=== PATIENT | female | born 1935 | race Caucasian/White ===

== ENCOUNTER 2021-03-20 20:04 | Inpatient (IN) | payer OTHER ==
[~2021-03-20] VITALS: Ht 160 cm; Wt 97.5 kg
[2021-03-20 20:16] VITALS: BP 174/117
[2021-03-20] MEDS ORDERED: COZAAR 25 MG TA25 M1 PO (20:22)
[2021-03-20] MEDS ORDERED: LIPITOR10 MG PO (20:22)
[2021-03-20] MEDS ORDERED: FUROSEMIDE 20 M20 MG PO (20:23)
[2021-03-20] MEDS ORDERED: LOPRESSOR50 MG PO (20:23)
[2021-03-20] MEDS ORDERED: ASA81BEC PO (20:23)
[2021-03-20] MEDS ORDERED: NORVASC10 MG PO (20:23)
[2021-03-20 21:06] LABS: ABSOLUTE NEUTROPHILS 15.2 thou/uL (1.4-8.2); BASOPHILS 0.2 % (0.0-2.0); EOSINOPHILS 1.1 % (0.0-3.0); HEMATOCRIT 40.7 % (37.0-47.0); LYMPHOCYTES 10.6 % (24.0-44.0); MCH 30.9 pg (26.0-34.0); MCHC 34.3 g/dL (28.0-37.0); MONOCYTES 7.6 % (1.0-8.0); PLATELET COUNT 333 thou/uL (150-400); POLYS 80.5 % (36.0-66.0); RBC 4.52 mil/uL (4.20-5.00); RDW 13.4 % (10.5-14.5); WBC 18.9 thou/uL (4.0-11.0)
[2021-03-20 21:17] LABS: CALCIUM 8.6 mg/dL (8.5-10.1); CREATININE 0.7 mg/dL (0.6-1.0); POTASSIUM 3.9 mmol/L (3.5-5.1)
[2021-03-20 21:37] LABS: TROPONIN-I 0.96 ng/mL (<0.06)
[2021-03-20 22:50] VITALS: BP 169/70
[2021-03-20 23:05] VITALS: BP 169/70
[2021-03-21] VITALS: BP 165/79
[2021-03-21 04:24] VITALS: BP 154/72
[2021-03-21 04:55] LABS: INR 0.97; PROTIME 10.6 Seconds (10.5-12.1)
[2021-03-21 05:28] LABS: HEMATOCRIT 38.9 % (37.0-47.0); HEMOGLOBIN 12.8 gm/dL (12.0-15.0); MCHC 32.9 g/dL (28.0-37.0); MCV 91.3 fL (80.0-100.0); RBC 4.26 mil/uL (4.20-5.00); RDW 13.2 % (10.5-14.5); WBC 17.4 thou/uL (4.0-11.0)
[2021-03-21 06:01] LABS: CALCIUM 8.4 mg/dL (8.5-10.1); CREATININE 0.6 mg/dL (0.6-1.0); POTASSIUM 3.8 mmol/L (3.5-5.1)
[2021-03-21 06:05] LABS: CHOLESTEROL 132 mg/dL (<200); HDL CHOLESTEROL 56 mg/dL (>40); LDL CHOLESTEROL 56 mg/dL (<100); TC:HDL 2.4 Ratio (Not establshd); TRIGLYCERIDE 102 mg/dL (<150); VLDL 20 mg/dL (<40)
[2021-03-21 06:16] LABS: SERUM ASSESSMENT Clear
[2021-03-21 06:30] LABS: URINE BILIRUBIN NEGATIVE (Negative); URINE BLOOD TRACE (Negative); URINE CLARITY CLEAR; URINE COLOR YELLOW; URINE GLUCOSE-RANDOM* NEGATIVE (Negative); URINE KETONES NEGATIVE (Negative); URINE LEUKOCYTES-REFLEX NEGATIVE (Negative); URINE NITRITE-REFLEX NEGATIVE (Negative); URINE PROTEIN (DIPSTICK) 2+ (Negative); URINE SPECIFIC GRAVITY >= 1.030 (1.005-1.035); URINE UROBILINOGEN 0.2 E.U./dl (0.2-1.0)
[2021-03-21 06:49] LABS: CASTS None Seen /LPF (None Seen); MUCUS >6 Heavy strn/LPF (None Seen); SQUAMOUS >10 Many /LPF (0-3)
[2021-03-21 06:50] LABS: BACTERIA-REFLEX 1-9 Few /HPF (None Seen); CRYSTALS None Seen /LPF (None Seen); URINE RBC 1-2 Rare /HPF (NONE SEEN); URINE WBC-REFLEX 0-5 Rare /HPF (0-5)
--- NOTE | 2021-03-21 07:11 | EKG ---
[address] [place] [address] ELECTROCARDIOGRAM REPORT Name: JUNIE SEAY SMITH Room #: 213-P ADM IN M.R.#: [id number] Admission: 03/20/21 Attend Phys: Julio C Valdez MD Discharge: Date of : 36 Report #: [id number] [facility] ED Test Date: 2021-03-20 Test Time: 20:33:15 Pat Name: JUNIE SEAY Department: Room: 213 Gender: F Manager Telemarketing: MOSES : 1935 Requested By: Griffin Lind Order Number: [id number] MD: Richie Doll Measurements Intervals [place] Rate: 81 P: -17 OH: 258 QRS: -10 QRSD: 98 T: 14 QT: 374 QTc: 434 Interpretive Statements Sinus rhythm Prolonged OH interval Anteroseptal infarct, age indeterminate Lateral leads are also involved No previous ECG available for comparison Electronically Signed On 03-21-2021 7:11:04 CDT by Richie Doll [email or web address] <ELECTRONICALLY SIGNED> By: Richie Doll MD, [facility] WITH [facility] 03/21/21710 32 32 Richie Doll MD, FACC /EPI
[2021-03-21 07:18] VITALS: BP 180/153
--- NOTE | 2021-03-21 08:00 | NUR ---
Patient admitted to room 213 from ER with shortness of breath and a NSTEMI. Patient awake and alert and able to assist with admission. Patient able to ambulate to bathroom without difficulty. Patient admitted to 2N on 3L O2. o2 sat 93% blood pressure stable. Pt slept well until 0600 when she had to go to the bathroom. Patient ambulated to bathroom with COMPLETIONS MANAGER. Pt did become very short of breath and asked for a breathing treatment. This was done and she was then able to lay back in the bed. About 30 minutes later, patient was seen sitting on the side of the bed looking distressed. Pt has worsening shortness of breath and c/o chest pain/pressure. RT called. Vital signs taken. O2 sat 71% on 3L. Inc O2 to 6L. Gave sl Nitro x2 and called cardiology. Patient was dieuretic and breathless as well. With the incresased O2 and nitro patient started to feel better. cardiology TRANSPORTATION COORDINATOR here to see patient. She also talked to the daughter in law, who arrived this am. Report given to day RN.
--- NOTE | 2021-03-21 09:10 | EKG ---
[place] [address] [facility] [place] [address] ELECTROCARDIOGRAM REPORT Name: JUNIE SEAY SMITH Room #: 213-P ADM IN M.R.#: [id number] Admission: 03/20/21 Attend Phys: Julio C Valdez MD Discharge: Date of : 36 Report #: [id number] [facility] Test Date: 2021-03-21 Test Time: 07:40:01 Pat Name: JUNIE SEAY Department: Room: 213 P Gender: F Clearance Rep: AD : 1935 Requested By: Daisha Devi Order Number: [id number] MD: Hang Zabala Measurements Intervals [place] Rate: 92 P: 115 SC: 235 QRS: 8 QRSD: 102 T: 30 QT: 370 QTc: 458 Interpretive Statements Sinus rhythm Prolonged SC interval Anteroseptal infarct, age indeterminate Compared to ECG 03/20/2021 20:33:15 No significant changes Electronically Signed On 03-21-2021 9:10:02 CDT by Hang Zabala [email or web address] <ELECTRONICALLY SIGNED> By: Hang Zabala MD, [facility] 03/21/2110 9 9 Hang Zabala MD, [facility] /EPI
[2021-03-21 11:30] VITALS: BP 130/74
[2021-03-21 12:37] LABS: D-DIMER 0.33 ug/mLFEU (0.19-0.50)
--- NOTE | 2021-03-21 13:06 | 2DMMODE ---
[facility] [address] [place] [address] 2 D/M-MODE ECHOCARDIOGRAM Name: JUNIE SEAY SMITH Room #: 213-P ADM IN M.R.#: [id number] Admission: 03/20/21 Attend Phys: Julio C Valdez MD Discharge: Date of : 36 Report #: [id number] THIS REPORT FOR: cc: FOR E.D. REG USE ONLY Physician not on staff Titus Gallegos MD ~ APPROVED REPORT Study performed: 03/21/2021 12:00:34 EXAM: Comprehensive 2D, Doppler, and color-flow Echocardiogram Patient Location: Bedside Room #: 213 Status: routine BSA: 1.97 HR: 69 bpm BP: 152/86 mmHg Rhythm: NSR Other Information Study Quality: Good Indications Congestive Heart Failure COPD Dyspnea Hypertension/HDD 2D Dimensions RVDd: 37.40 mm IVSd: 13.66 (7-11mm) LVOT Diam: 19.63 (18-24mm) LVDd: 42.43 mm PWd: 12.68 (7-11mm) Ascending Ao: 30.27 (22-36mm) LVDs: 29.20 (25-40mm) Left Atrium: 45.67 (27-40mm) Aortic Root: 30.84 mm IVC: 18.00 mm Volumes Left Atrial Volume (Systole) Single Plane 4CH: 63.22 mL Single Plane 2CH: 49.45 mL LA ESV Index: 31.00 mL/m2 Aortic Valve AoV Peak Karl.: 2.42 m/s [facility] [place] [address] 2 D/M-MODE ECHOCARDIOGRAM Name: JUNIE SEAY SMITH Room #: 213-P ADM IN .R.#: [id number] Admission: 03/20/21 Attend Phys: Julio C Valdez MD Discharge: Date of : 36 Report #: [id number] Peak Gr.: 23.47 mmHg LVOT Max P.19 mmHg AO Mean Gr.: 12.66 mmHg LVOT Mean P.17 mmHg AO V2 Mean: 1.66 m/s LVOT Max V: 1.02 m/s AO V2 VTI: 57.53 cm LVOT Mean V: 0.67 m/s LAURA (VTI): 1.25 cm2 LVOT V1 VTI: 23.84 cm LAURA Vmax: 1.28 cm2 SV (LVOT): 72.12 mL Mitral Valve E/A Ratio: 0.8 MV Decel. Time: 194.07 ms MV E Max Karl.: 0.65 m/s MV A Karl.: 0.84 m/s MV PHT: 56.28 ms IVRT: 110.73 ms Pulmonary Valve PV Peak Karl.: 0.81 m/s PV Peak Gr.: 2.62 mmHg Pulmonary Vein P Vein S: 0.38 m/s P Vein A: 0.26 m/s P Vein D: 0.30 m/s P Vein A Dur.: 152.2 msec P Vein S/D Ratio: 1.27 Tricuspid Valve TR Peak Karl.: 2.65 m/s TR Peak Gr.: 28.01 mmHg PA Pressure: 33.00 mmHg Left Ventricle The left ventricle is normal size. There is hypokinesis of the inferior wall. Mild concentric left ventricular hypertrophy. Left ventricular systolic function is mildly decreased. LVEF is 45%. Grade I - abnormal relaxation pattern. Right Ventricle The right ventricle is normal size. The right ventricular systolic function is normal. Atria The left atrium size is normal. The right atrium size is normal. Aortic Valve The aortic valve is normal in structure. Aortic valve is calcified. Trace aortic regurgitation. Mild aortic stenosis. [facility] [address] [place] [address] 2 D/M-MODE ECHOCARDIOGRAM Name: JUNIE SEAY SMITH Room #: 213-P [facility] IN [facility]#: [id number] Admission: 03/20/21 Attend Phys: Julio C Valdez MD Discharge: Date of : 36 Report #: [id number] Mitral Valve The mitral valve is normal in structure. Mild mitral regurgitation. No evidence of mitral valve stenosis. Tricuspid Valve The tricuspid valve is normal in structure. There is mild tricuspid regurgitation. Estimated PAP 33mmHg. There is mild pulmonary hypertension. Pulmonic Valve The pulmonary valve is normal in structure. There is no pulmonic valvular regurgitation. Great Vessels The aortic root is normal in size. IVC is normal in size and collapses >50% with inspiration. Pericardium There is no pericardial effusion. <Conclusion> The left ventricle is normal size. Mild concentric left ventricular hypertrophy. Left ventricular systolic function is mildly decreased. LVEF is 45%. Grade I - abnormal relaxation pattern. The right ventricle is normal size. Mild aortic stenosis. Mild mitral regurgitation. There is mild tricuspid regurgitation. Estimated PAP 33mmHg. <ELECTRONICALLY SIGNED> By: Titus Gallegos MD 03/21/21 1306 1306 1306 Titus Gallegos MD /INF
--- NOTE | 2021-03-21 13:54 | NUR ---
ASSESSMENT: CM REVIEWED CHART AND MET WITH PATIENT AT THE BEDSIDE. PT IS ALERT AND ORIENTED X4. PT WAS ADMITTED DUE TO CHEST PAIN AND ELEVATED TROPONIN. PT IS TO HAVE CATH. PT REPORTS SHE IS IN TOWN VISITING FROM [place] BUT HER DAUGHTER LIVES HERE NEAR THE HOSPITAL. PT REPORTS THAT SHE NORMALLY AMBULATES USING A CANE BUT ALSO HAS A WALKER AT HOME. PT LIVES IN [place] WITH HER . PT REPORTS NORMALLY BEING PRETTY INDEPENDENT. PT REPORTS SHE HAS NOT HAD HH IN THE PAST OR BEEN TO A SNF. PT DOES NOT WEAR OXYGEN AT BASELINE. PT REPORTS THAT SHE PLANS ON STAYING AT HER DAUGHTER FOR A COUPLE DAYS AND HEADING BACK TO [place] MID WEEK NEXT WEEK. PT REPORTS HER PCP IS DR. CUCO MORFIN. CM WILL CONTINUE TO FOLLOW. PT DOES NOT ANTICIPATE HAVING ANY NEEDS FROM CM.
[2021-03-21 15:20] VITALS: BP 151/59
--- NOTE | 2021-03-21 15:38 | CATHLAB ---
[facility] [address] [place] [address] INVASIVE PROCEDURE REPORT Name: JUNIE SEAY SMITH Room #: 213-P ADM IN M.R.#: [id number] Admission: 03/20/21 Attend Phys: Julio C Valdez MD Discharge: Date of : 36 Report #: [id number] THIS REPORT FOR: cc: FOR E.D. REG USE ONLY Physician not on staff Titus Gallegos MD ~ APPROVED REPORT Study performed: 03/21/2021 12:24:06 Patient Details Patient Status: In-Patient Room #: 213 The patient is a 85 year-old female Event Personnel Titus Gallegos Chucker, Gisell Waggoner RTR, CORRUGATOR MACHINE OPERATOR Monitor, Nicole Singh RN RN, Henri Rousseau RTR Scrub Procedures Performed Art Access - R femoral artery* Left Heart Cath w/or w/o Coronaries [id number] [facility] [address] Place w/wo Plasty Single LAD 026753 [address] Place w/wo Plasty Single RCA 145126 31463 Initial Mod Sed Same Phys/QHP Gr5y 102945 17839 Mod Sed Same Phys/QHP Ea 908303 Hemostasis w/ Mynx Indication CHF Current Status: , Non-STEMI , Dyspnea, Unstable angina , Chest pain Risk Factors Peripheral Vascular Disease, HypercholesterolemiaPhysical Activity, Hypertension Procedure Narrative The Right Groin^ was infiltrated with 1% Lidocaine subcutaneous anesthesia. A PINNACLE 4FR Sheath #[id number] sheath was inserted into the RFA^. Coronary angiography was performed using coronary diagnostic catheters. The right coronary system was accessed and visualized with a JR4 catheter. The left coronary system was accessed and visualized with a JL4 catheter. The left ventricle was accessed and visualized with a JR4 catheter. Left ventricular/Aortic Valve gradient assessed via catheter pullback. Pre-demployment femoral angiogram was performed . Closure device was deployed with a 6 Fr MYNXGRIP 6/7F #[id number]. The patient tolerated the procedure well and [facility] [address] [place] [address] INVASIVE PROCEDURE REPORT Name: POLINA SEAYVA SMITH Room #: 213-P [facility] IN [facility]#: [id number] Admission: 03/20/21 Attend Phys: Julio C Valdez MD Discharge: Date of : 36 Report #: [id number] there were no complications associated with the procedure. There was no hematoma. Intraoperative Conscious Sedation Sedation start time: 13:12 Case end Time: 14:40 Fentanyl 50 mcg Versed 1 mg Fluoro Time: 28.20 minutes Dose: DAP 38605.30 cGycm2 5015 mGy Contrast Type and Amount: Omnipaque 260 ml Coronary Angiography The patient's coronary anatomy is right dominant. Diagnostic Cath Left Main The left main artery has mild diffuse disease. LAD There is a severe, calcified stenosis in the proximal segment, 95%. There is a severe occlusion just beyond this lesion in the proximal segment. The remaining segments did not have any flow-limiting lesions. Diagonal 1 This is a small caliber vessel, with a subtotal occlusion. Diagonal 2 There is a small to moderate-sized caliber vessel, patent with no flow-limiting lesions. Circumflex The left circumflex artery has mild disease proximally. OM1 There is a small caliber vessel, with no flow-limiting lesions. OM2 There is a moderate-sized caliber vessel, patent with no flow-limiting lesions. Right Coronary The RCA is moderately calcified with a severe, discrete stenosis in the mid segment, 95%. R PDA This is a moderate-sized caliber vessel with a moderate ostial stenosis. RPLV This is a moderate-sized caliber vessel, patent with no flow-limiting lesions. Left Ventriculography Left Ventriculography was not performed. Ejection Fraction was 45% based off patient's Echocardiogram. An LVEDP was measured and there is no gradient across the outflow tract. Hemodynamics The aortic pressure is 133/54 mmHg with a mean of 90 mmHg. The left ventricular pressure is 146/13 mmHg with a mean of mmHg. The left [facility] [address] [place] [address] INVASIVE PROCEDURE REPORT Name: JUNIE SEAY SMITH Room #: 213-P [facility] IN M.R.#: [id number] Admission: 03/20/21 Attend Phys: Julio C Valdez MD Discharge: Date of : 36 Report #: [id number] ventricular end diastolic pressure is 27 mmHg. PCI Technique Lesion Percutaneous coronary intervention was performed on the proximal left anterior descending artery segment. The lesion stenosis prior to intervention was 99% with ROBERTO 3 flow. A VISTA 6FR XB 3.5 #[id number] Guide Catheter was used to engage the ostium. A Whisper Wire .014 x 190 #[id number] Interventional Guidewire was used to cross the lesion. BALLOON DILATION A Balloon catheter Euphora RX 2.25 x 12 #[id number] was inserted and inflated up to 12.00atm for 12seconds. Additional Inflation: 12.00atm for 11seconds. Additional Inflation: 16.00atm for 12seconds. Additional Inflation: 16 wen for 10 seconds STENT DEPLOYMENT A drug-eluting stent RESOLUTE PRESTON RX 2.5 X 15 #[id number] was inserted and inflated up to 12.00atm for 12seconds. Additional Inflation: 14.00atm for 12seconds. A second drug-eluting stent Resolute Preston RX 2.75 x 12 was inserted proximal to Resolute [place] RX 2.5 x 15 stent and inflated up to 16 wen for 12 seconds. POST STENT DEPLOYMENT BALLOON DILATION A Balloon catheter Euphora NC RX 2.5 x 12 #[id number] was inserted and inflated up to 16.00atm for 19seconds. Additional Inflation: 16.00atm for 9seconds. Additional Inflation: 16.00atm for 8seconds. Additional Inflation: 16 wen for 16 seconds Additional Inflation: 18 wen for 13 seconds A Euphora NC 3.0 x 12 balloon was inserted and used to post dilate the stents, inflated up to 16 wen for 11 seconds. Final angiography reveals 0 % stenosis with ROBERTO 3 flow. PCI Technique Lesion 2 Percutaneous Coronary Intervention was performed on the mid right coronary artery. The lesion stenosis prior to intervention was 95% with ROBERTO 3 flow. A VISTA 6FR JR 4 #[id number] Guide Catheter was used to engage the ostium. A Luge Wire .014 x 182CM #[id number] Interventional Guidewire was used to cross the lesion. Balloon Dilation A Balloon catheter Euphora RX 2.25 x 12 #[id number] was inserted and inflated up to wen for seconds. Stent Deployment A drug-eluting stent XIENCE PAUL RX 3.25 X 15 #[id number] was inserted [facility] [address] [place] [address] INVASIVE PROCEDURE REPORT Name: JUNIE SEAY SMITH Room #: 213-P [facility] IN ..#: [id number] Admission: 03/20/21 Attend Phys: uJlio C Valdez MD Discharge: Date of : 36 Report #: [id number] and inflated up to 18.00atm for 21seconds. Post Stent Deployment Balloon Dilation A Balloon catheter Euphora NC RX 2.5 x 12 #[id number] was inserted and inflated up to 18.00atm for 25seconds. A balloon catheter NC Euphora RX 3.0 x 12 was inserted and inflated up to 16 wen for 14 seconds. A balloon NC Euphora RX 3.5 x 12 was inserted and used to post dilate the Xience Paul KILEY. Inflation: 18 wen for 21 seconds. Additional inflation: 18 wen for 23 seconds. Final angiography reveals 5 % stenosis with ROBERTO 3 flow. Conclusion 1. Successful insertion of 2 overlapping drug-eluting stents into the proximal LAD segment. 2. Successful insertion of a drug-eluting stent into the mid RCA. 3. Mild to moderate segmental LV dysfunction. 4. Recommend guideline directed medical therapy and dual antiplatelet treatment. <ELECTRONICALLY SIGNED> By: Titus Gallegos MD 03/21/21 1537 153 153 Titus Gallegos MD /INF
--- NOTE | 2021-03-21 16:53 | EKG ---
[place] [address] [facility] [place] [address] ELECTROCARDIOGRAM REPORT Name: JUNIE SEAY SMITH Room #: 213-P ADM IN M.R.#: [id number] Admission: 03/20/21 Attend Phys: Julio C Valdez MD Discharge: Date of : 36 Report #: [id number] [facility] Test Date: 2021-03-21 Test Time: 15:18:20 Pat Name: JUNIE SEAY Department: Room: 213 P Gender: F Player Manager: LIAT : 1935 Requested By: Titus Gallegos Order Number: [id number] MD: Titus Gallegos Measurements Intervals [place] Rate: 101 P: 228 PA: 163 QRS: -8 QRSD: 94 T: 27 QT: 338 QTc: 439 Interpretive Statements Sinus or ectopic atrial tachycardia Septal ME Borderline T abnormalities, anterior leads Borderline ST elevation, anterolateral leads Compared to ECG 03/21/2021 07:40:01 No significant change Electronically Signed On 03-21-2021 16:53:07 CDT by Titus Gallegos [email or web address] <ELECTRONICALLY SIGNED> By: Titus Gallegos MD 03/21/21 1653 1518 1518 Titus Gallegos MD /GADIEL
[2021-03-21 20:15] VITALS: BP 139/62
[2021-03-22 00:52] VITALS: BP 148/67
[2021-03-22 01:07] LABS: GLYCOHEMOGLOBIN (HGB A1C) 5.8 % (4.8-5.6)
[2021-03-22 04:37] LABS: HEMATOCRIT 39.8 % (37.0-47.0); MCH 29.6 pg (26.0-34.0); MCHC 32.7 g/dL (28.0-37.0); MCV 90.6 fL (80.0-100.0); RBC 4.39 mil/uL (4.20-5.00); RDW 12.9 % (10.5-14.5); WBC 15.1 thou/uL (4.0-11.0)
[2021-03-22 04:45] VITALS: BP 160/81
[2021-03-22 04:50] LABS: ALBUMIN 2.6 g/dL (3.4-5.0); CREATININE 0.6 mg/dL (0.6-1.0); POTASSIUM 3.2 mmol/L (3.5-5.1); TOTAL PROTEIN 6.5 g/dL (6.4-8.2)
[2021-03-22 08:15] VITALS: BP 150/68
[2021-03-22] MEDS ORDERED: CLOPIDOGREL75 MG PO (09:50)
--- NOTE | 2021-03-22 11:01 | EKG ---
[place] [address] [facility] [email or web address] [address] ELECTROCARDIOGRAM REPORT Name: JUNIE SEAY SMITH Room #: 213-P ADM IN M.R.#: [id number] Admission: 03/20/21 Attend Phys: Julio C Valdez MD Discharge: Date of : 36 Report #: [id number] [facility] Test Date: 2021-03-22 Test Time: 07:41:56 Pat Name: JUNIE SEAY Department: Room: 213 P Gender: F Camp Tender: TYRONE : 1935 Requested By: Titus Gallegos Order Number: [id number] MD: Titus Gallegos Measurements Intervals [place] Rate: 78 P: 41 NE: 198 QRS: -11 QRSD: 99 T: -78 QT: 431 QTc: 491 Interpretive Statements Sinus rhythm Abnormal T, consider ischemia, diffuse leads Compared to ECG 03/21/2021 15:18:20 Possible ischemia now present ST (T wave) deviation no longer present T-wave abnormality still present Electronically Signed On 03-22-2021 11:01:07 CDT by Titus Gallegos [email or web address] <ELECTRONICALLY SIGNED> By: Titus Gallegos MD 03/22/21 1101 0 0 Titus Gallegos MD /GADIEL
[2021-03-22] MEDS ORDERED: NITROGLYCERIN0.4 MG SUBLING (12:40)
[2021-03-22] MEDS ORDERED: PEPCID20 MG PO (12:42)
[2021-03-22 12:44] VITALS: BP 131/53
[2021-03-22 14:43] VITALS: BP 131/53
== END 2021-03-22 14:32 | disposition home or self-care (01) | DRG 246 ==
LOC: ER 20:04 → EROBS 22:22 → 2N 22:22
PROVIDERS: Internal Medicine Cardiovascular Disease; Nurse Practitioner; Nurse Practitioner Family; ADMIT Hospitalist; ATTEND Hospitalist
PROC: B2111ZZ Fluoroscopy of Multiple Coronary Arteries using Low Osmolar Contrast (ICD-10-PCS; principal; 2021-03-21)
PROC: 027136Z Dilation of Coronary Artery, Two Arteries with Three Drug-eluting Intraluminal Devices, Percutaneous Approach (ICD-10-PCS; principal; 2021-03-21)
PROC: 4A023N7 Measurement of Cardiac Sampling and Pressure, Left Heart, Percutaneous Approach (ICD-10-PCS; principal; 2021-03-21)
DX: I21.4 Non-ST elevation (NSTEMI) myocardial infarction (principal); J96.01 Acute respiratory failure with hypoxia; D72.829 Elevated white blood cell count, unspecified; E78.5 Hyperlipidemia, unspecified; R73.9 Hyperglycemia, unspecified; J44.9 Chronic obstructive pulmonary disease, unspecified; I50.9 Heart failure, unspecified; I11.0 Hypertensive heart disease with heart failure; Z66 Do not resuscitate; Z20.822 Contact with and (suspected) exposure to COVID-19; Z79.899 Other long term (current) drug therapy; Z90.49 Acquired absence of other specified parts of digestive tract; Z98.42 Cataract extraction status, left eye; Z79.82 Long term (current) use of aspirin; Z98.41 Cataract extraction status, right eye; Z90.710 Acquired absence of both cervix and uterus
CPT/HCPCS: 10081

== ENCOUNTER 2021-03-25 20:25 | Emergency (ER) | payer OTHER ==
[~2021-03-25] VITALS: Ht 160 cm; Wt 90.7 kg
--- NOTE | ~2021-03-25 | HC ---
[facility] [place] [address] [address] CONSULTATION Name: JUNIE SEAY SMITH Room #: DEP JOANA [place]#: [id number] Admission: 03/25/21 Attend Phys: Discharge: 03/26/21 Date of : 36 Report #: [id number] THIS REPORT FOR: cc: FAM - Family physician unknown FAM - Family physician unknown Deny May MD ~ HISTORY OF PRESENT ILLNESS: This is an 85-year-old female patient family contacted me through the service for increasing shortness of breath. The patient underwent two vessel stenting on Wednesday by Dr. Titus Gallegos involving the proximal mid LAD and the proximal RCA. The patient apparently had been having a cough even prior to her stenting, which was nonproductive and not associated with shortness of breath. After stenting, she went home and family stated they did not notice any change in her cough, but may have been a little bit more short of breath. At the time of calling me, she was significantly short of breath and tachypneic. She was instructed to present immediately to the Emergency Room. Upon arrival in the Emergency Room, she proceeded to have a cardiac arrest and was unresponsive. In the Emergency Room, the patient was intermittently stabilized with rhythm with a wide complex right bundle branch block. Old ECG was not available for comparison. She continued to deteriorate and subsequently was unable to be resuscitated and was pronounced in the Emergency Room. PAST MEDICAL HISTORY: 1. Hypertension. 2. COPD. 3. Peripheral vascular disease. 4. Coronary artery disease. PAST SURGICAL HISTORY: Significant for appendectomy, cholecystectomy, hysterectomy, carotid surgery x2 in the left and bilateral cataract surgery. MEDICATIONS: At home were clopidogrel, sublingual nitroglycerin, famotidine, aspirin 81 mg, amlodipine, metoprolol, furosemide, losartan, atorvastatin. ALLERGIES: No known drug allergies. REVIEW OF SYSTEMS: Unable to be performed. LABORATORY DATA: Noted in the chart with profound acidosis and elevated white count. PHYSICAL EXAMINATION: Not performed due to cardiac arrest and subsequent demise. ELECTROCARDIOGRAM: Atrial fibrillation with a wide QRS, left axis deviation, [facility] [address] [place] [address] CONSULTATION Name: JUNIE SEAY SMITH Room #: [facility] [place]#: [id number] Admission: 03/25/21 Attend Phys: Discharge: 03/26/21 Date of : 36 Report #: [id number] bradycardic rate. No acute ST segment elevation noted. IMPRESSION: Sudden cardiac in an individual within a week of stenting. It appears that she may have had some increasing shortness of breath, which could have been either left ventricular dysfunction and heart failure or could have been a pneumonic process since chest x-ray demonstrated patchy findings which could represent a pneumonia. The patient was unsuccessfully resuscitated by the ER physician. Discussed possible etiologic causes with family. By: [phone] Deny May MD /nt
[~2021-03-25 20:25] MED LIST: ASA81BEC PO; CLOPIDOGREL75 MG PO; COZAAR 25 MG TA25 M1 PO; FUROSEMIDE 20 M20 MG PO; LIPITOR10 MG PO; LOPRESSOR50 MG PO; NITROGLYCERIN0.4 MG SUBLING; NORVASC10 MG PO; PEPCID20 MG PO
[2021-03-25 21:07] LABS: BE(vivo) -6.4 mmol/L (-2 to +3); HCO3 25.9 mmol/L (22.0-26.0); sO2 15.4 % (92.0-98.0)
[2021-03-25 21:08] LABS: PCO2 94.5 mmHg (35.0-45.0); PO2 18.7 mmHg (80.0-100.0)
[2021-03-25 21:10] LABS: pH 7.055 (7.360-7.450)
[2021-03-25 21:32] LABS: HEMATOCRIT 39.8 % (37.0-47.0); HEMOGLOBIN 12.4 gm/dL (12.0-15.0); MCH 30.3 pg (26.0-34.0); MCHC 31.2 g/dL (28.0-37.0); PLATELET COUNT 239 thou/uL (150-400); RDW 13.5 % (10.5-14.5); WBC 22.4 thou/uL (4.0-11.0)
[2021-03-25 21:41] LABS: CALCIUM 10.1 mg/dL (8.5-10.1); CREATININE 1.3 mg/dL (0.6-1.0); POTASSIUM 4.1 mmol/L (3.5-5.1)
[2021-03-25 21:51] LABS: ALBUMIN 2.2 g/dL (3.4-5.0); TOTAL BILIRUBIN 0.9 mg/dL (0.2-1.0); TOTAL PROTEIN 6.3 g/dL (6.4-8.2)
[2021-03-25 21:56] LABS: TROPONIN-I 0.82 ng/mL (<0.06)
[2021-03-25 23:30] LABS: ABSOLUTE NEUTROPHILS 15.5 thou/uL (1.4-8.2); ANISOCYTOSIS 1+; METAMYELOCYTES 1 %; PLATELET ESTIMATE NORMAL; POIKILOCYTOSIS 1+
--- NOTE | 2021-03-26 07:26 | EKG ---
[place] [address] [place] [address] ELECTROCARDIOGRAM REPORT Name: JUNIE SEAY SMITH Room #: [facility] [place]#: [id number] Admission: 03/25/21 Attend Phys: Discharge: 03/26/21 Date of : 36 Report #: [id number] [facility] ED Test Date: 2021-03-25 Test Time: 20:25:05 Pat Name: JUNIE SEAY Department: Room: Gender: F Deputy Insurance Commissioner: JUWAN : 1935 Requested By: Jeramy Tucker Order Number: [id number] MD: Richie Doll Measurements Intervals [place] Rate: 108 P: [place]: QRS: -78 QRSD: 216 T: 83 QT: 427 QTc: 573 Interpretive Statements Atrial fibrillation RBBB Left ventricular hypertrophy Compared to ECG 03/22/2021 07:41:56 Left anterior fascicular block now present Right bundle-branch block now present Left ventricular hypertrophy now present Sinus rhythm no longer present T-wave abnormality no longer present Possible ischemia no longer present Electronically Signed On 03-26-2021 7:26:28 CDT by Richie Doll [email or web address] <ELECTRONICALLY SIGNED> By: Richie Doll MD, FACC 03/26/21725 24 24 Richie Doll MD, [facility] /EPI
--- NOTE | 2021-03-27 07:11 | EKG ---
[place] [address] [facility] [place] [address] ELECTROCARDIOGRAM REPORT Name: JUNIE SEAY SMITH [facility] [id number] Admission: 03/25/21 Attend Phys: Discharge: 03/26/21 Date of : 36 Report #: [id number] [facility] ED Test Date: 2021-03-25 Test Time: 21:02:40 Pat Name: JUNIE SEAY Department: Room: Gender: F Eye Dropper Assembler: JUWNA : 1935 Requested By: Jeramy Tucker Order Number: [id number] MD: Richie Doll Measurements Intervals [place] Rate: 37 P: [place]: QRS: -80 QRSD: 131 T: 97 QT: 438 QTc: 344 Interpretive Statements Suspect Atrial fibrillation Right bundle branch block Inferior infarct, acute Baseline wander in lead(s) V1,V2 Compared to ECG 03/25/2021 20:25:05 Left ventricular hypertrophy no longer present Electronically Signed On 03-27-2021 7:10:50 CDT by Richie Doll [email or web address] <ELECTRONICALLY SIGNED> By: Richie Doll MD, [facility] 03/27/21 07 01 01 Richie Doll MD, [facility] /EPI
== END 2021-03-26 00:04 ==
LOC: ER 20:25
PROVIDERS: Emergency Medicine
DX: I46.9 Cardiac arrest, cause unspecified (principal); I10 Essential (primary) hypertension; J44.9 Chronic obstructive pulmonary disease, unspecified; Z79.82 Long term (current) use of aspirin; Z79.899 Other long term (current) drug therapy; Z90.49 Acquired absence of other specified parts of digestive tract; Z90.710 Acquired absence of both cervix and uterus